=== PATIENT | male | born 2000 | race Caucasian/White ===

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

== ENCOUNTER 2020-06-04 10:42 | Emergency (ER) | payer OTHER ==
[~2020-06-04] VITALS: Ht 188 cm; Wt 99.6 kg
[2020-06-04 10:43] VITALS: BP 139/74
[2020-06-04] MEDS ORDERED: LIDOCAINE 2% MDV 20ML VIAL SC ONE (11:00)
[2020-06-04] MEDS ORDERED: BACI500O21 TOP (11:09)
== END 2020-06-04 11:19 | disposition home or self-care (01) ==
LOC: M ED 10:42
DX: S61.214A Laceration without foreign body of right ring finger without damage to nail, initial encounter (principal); W01.119A Fall on same level from slipping, tripping and stumbling with subsequent striking against unspecified sharp object, initial encounter; Y92.9 Unspecified place or not applicable; Y93.9 Activity, unspecified; Y99.9 Unspecified external cause status

== ENCOUNTER → 2021-02-09 | Outpatient (REF) | payer OTHER ==
[~2021-02-09] MED LIST: BACI500O21 TOP
[2021-02-09 13:42] LABS: APPEARANCE, URINE CLEAR (CLEAR); BACTERIA, URINE AUTO NEGATIVE (NEGATIVE); BILIRUBIN, URINE AUTO NEGATIVE (NEGATIVE); BLOOD, URINE BLOOD NEGATIVE (NEGATIVE); COLOR, URINE YELLOW (YELLOW); GLUCOSE, URINE (UA) AUTO NEGATIVE (NEGATIVE); KETONE, URINE AUTO NEGATIVE (NEGATIVE); LEUKOCYTE ESTERASE, URINE AUTO NEGATIVE (NEGATIVE); MUCUS, URINE SMALL (NEGATIVE); NITRITE, URINE AUTO NEGATIVE (NEGATIVE); PROTEIN, URINE AUTO NEGATIVE (NEGATIVE); RBC, URINE AUTO 0 /HPF (0-3); SPECIFIC GRAVITY URINE AUTO 1.017 (1.002-1.035); SQUAMOUS EPITHELIAL CELL UR AU 0 /HPF (0-6); UROBILINOGEN, URINE AUTO 0.2 mg/dL (0.0-2.0); WBC, URINE AUTO 0 /HPF (0-3)
== END ==
LOC: M SMT 12:52
PROVIDERS: ATTEND Nurse Practitioner Women's Health
DX: R32 Unspecified urinary incontinence (principal); Z86.19 Personal history of other infectious and parasitic diseases

== ENCOUNTER → 2021-05-15 | Outpatient (CLI) | payer OTHER ==
--- NOTE | 2021-05-15 15:21 | REP ---
INDICATION: URINARY INCONTINENCE, NOCTURNAL ENURESIS COMPARISON: None TECHNIQUE: Real time B-mode ultrasound examination using curved array transducer. FINDINGS: Bladder is normal in appearance without wall thickening or mass lesion. Bilateral ureteral jets are identified. Prostate gland is of normal size and echotexture measuring 3.0 x 2.8 x 2.5 cm (11 cc). Prevoid bladder measures 9.3 x 9.1 x 8.2 cm (453 cc). Postvoid bladder measures 2.2 x 4.0 x 0.6 cm (3 cc). Postvoid residual: Less than 1% IMPRESSION: 1. Normal bladder ultrasound. <Electronically signed by Gian Ramirez > 05/15/21 [id number]
== END ==
LOC: M RAD 14:02
PROVIDERS: ATTEND Nurse Practitioner Women's Health
DX: N39.44 Nocturnal enuresis (principal)